=== PATIENT | female | born 1980 | race American Indian/Alaskan Native ===

== ENCOUNTER 2017-05-09 10:39 | Observation (INO) | payer MEDICAID ==
[2017-05-09 10:53] VITALS: BMI 25.2
[2017-05-09] MEDS ORDERED: Sodium Chloride 0.9% 500 ML IV STA (11:28)
[2017-05-09] MEDS ORDERED: HYDROmorphone 0.5 mg/0.5 ml ISec IVP STA ×2 (11:29→15:47)
--- NOTE | 2017-05-09 11:33 | ED PDOC ---
Arrival/HPI - General Chief Complaint: Abdominal Pain Time Seen by Provider: 05/09/17 11:27 Historian: Patient - History of Present Illness Narrative History of Present Illness (Text): 05/09/17 11:30 pt p/w + ~ 1 week onset of diffuse mid-lower abd pain, at most pain is 9/10, typically the pain is 5/10; pain wax and wanes; decr appetite; pt was seen and treated at [facility] [place] 6 days ago and admitted and discharged 4days ago; pt states she had CT done at that time as well but she says she was prescribed Pepcid and discharged home; pt states no fever/sweats, + constant chills (not new), no cp/ sob/palpitations, pt was treated with asthma exacerbation last week as well; pt states no urinary changes, + last BM was ~ 5-6 days ago; pt states no fall/ trauma/sick contact, no travel; pt also noted nausea/vomiting x 3-4 days with poor appetite; pt states her abd pain today was worse and didnt want to go to [facility] [place] and decided to come to [facility] for further eval; pt's without other complaints Pt received nearly all her dialysis today Pt has had Endoscopy ~ 1 year ago (no + results) PCP: Dr Santos ([facility] [place]) dialysis - //Sat Time/Duration: 1 week Symptom Onset: Gradual Symptom Course: Worsening (waxing and waning) Quality: Stabbing, Cramping Severity Level: 9, Severe Activities at Onset: Rest Context: Home Past Medical History - Provider Review Nursing Documentation Reviewed: Yes - Travel History Have you recently traveled outside [place] w/in the past 3 mons?: No - Past History Past History: No Previous - Infectious Disease Hx of Infectious Diseases: None - Tetanus Immunization Tetanus Immunization: Unknown - Reproductive Menopause: Yes - Cardiac Hx Cardiac Disorders: No - Pulmonary Hx Respiratory Disorders: Yes Hx Asthma: Yes - Neurological Hx Neurological Disorder: No - HEENT Hx HEENT Disorder: No - Renal Hx Renal Disorder: Yes Hx Dialysis: Yes () Date of Last Dialysis Treatment: 02/21/16 Hx Renal Failure: Yes - Endocrine/Metabolic Hx Endocrine Disorders: No - Hematological/Oncological Hx Blood Disorders: No - Integumentary Hx Dermatological Disorder: No - Musculoskeletal/Rheumatological Hx Musculoskeletal Disorders: No - Gastrointestinal Hx Gastrointestinal Disorders: No Hx Gastritis: Yes - Genitourinary/Gynecological Hx Genitourinary Disorders: Yes Other/Comment: ectopic - Psychiatric Hx Psychophysiologic Disorder: Yes Hx Depression: Yes Hx Substance Use: No - Surgical History Hx Section: Yes Hx Tubal Ligation: Yes Hx Vascular Access Device: Yes Other/Comment: ectopic - Anesthesia Hx Anesthesia: Yes Hx Anesthesia Reactions: No Hx Malignant Hyperthermia: No - Suicidal Assessment Feels Threatened In Home Enviroment: No Family/Social History - Physician Review Nursing Documentation Reviewed: Yes Family/Social History: No Known Family HX Smoking Status: Light Smoker < 10 Cigarettes Daily Hx Alcohol Use: No Hx Substance Use: No Route: Smoking/Inhalation (weed) Hx Substance Use Treatment: No Allergies/Home Meds Allergies/Adverse Reactions: Allergies peanut Allergy (Verified 02/22/16 12:05) ANAPHYLAXIS tramadol Allergy (Verified 02/22/16 12:05) ANAPHYLAXIS chocolate Allergy (Uncoded 02/22/16 12:05) SWELLING sweet pea Allergy (Uncoded 02/22/16 12:05) SWELLING Home Medications: Home Meds Medication Instructions Recorded Confirmed Albuterol HFA [Ventolin HFA 90 1 puff INH Q4H 05/09/17 05/09/17 mcg/actuation (8 g)] Albuterol Sulfate [Albuterol 2.5 mg INH Q6H 05/09/17 05/09/17 Sulfate] Beclomethasone Dipropionate [Qvar 80 mcg INH BID 05/09/17 05/09/17 80 mcg] Cinacalcet [Sensipar] 30 mg PO DAILY 05/09/17 05/09/17 Esomeprazole Magnesium [Nexium] 22.3 mg PO DAILY 05/09/17 05/09/17 Famotidine [Pepcid] 20 mg PO DAILY 05/09/17 05/09/17 Fluticasone/Salmeterol 1 inh PO PRN PRN 05/09/17 05/09/17 [Fluticasone-Salmeterol 113-14] Lanthanum [Fosrenol] 1,000 mg PO TID 05/09/17 05/09/17 Sucroferric Oxyhydroxide [Velphoro] 500 mg PO BID 05/09/17 05/09/17 Review of Systems - Review of Systems Constitutional: Normal Eyes: Normal ENT: Normal Respiratory: SOB, Cough, Wheezing Cardiovascular: Chest Pain Gastrointestinal: Abdominal Pain, Constipation, Nausea, Vomiting Genitourinary Female: Normal Musculoskeletal: Normal Skin: Normal Neurological: Normal Endocrine: Normal Hemo/Lymphatic: Normal Psychiatric: Normal Physical Exam Vital Signs Reviewed: Yes Vital Signs Temp Pulse Resp BP Pulse Ox 05/09/17 11:05 98.3 F 72 18 135/96 H 99 Temperature: Afebrile Blood Pressure: Hypertensive Pulse: Regular Respiratory Rate: Normal Appearance: Positive for: Well-Appearing, Non-Toxic, Uncomfortable, Other ( resting in bed, alert/awake, GCS = 15, oriented x 3, uncomfortable, + mild distress due to pain, coopeartive, follows command with ease) Pain Distress: Mild Mental Status: Positive for: Alert and Oriented X 3 - Systems Exam Head: Present: Atraumatic, Normocephalic Pupils: Present: PERRL, Other (wearing eye glasses, no nystagmus, no photophobia , sclera anicteric, visual field intact b/l) Extroacular Muscles: Present: EOMI Conjunctiva: Present: Normal Ears: Present: Normal Mouth: Present: Moist Mucous Membranes, Normal Teeth, Other (no drooling/stridor , no exudate/lesions, uvula/tongue are midline, intact dentitions) Pharnyx: Present: Normal Nose (External): Present: Atraumatic Nose (Internal): Present: Normal Inspection Neck: Present: Normal Range of Motion, Trachea Midline, Other (intact ROM, no midline tenderness, no step off). No: MIDLINE TENDERNESS Respiratory/Chest: Present: Clear to Auscultation, Good Air Exchange, Other ( CTA b/l, no w/r/r, no accessory muscle use noted, no tachypenia) Cardiovascular: Present: Regular Rate and Rhythm, Normal S1, S2 Abdomen: Present: Normal Bowel Sounds, Other (diffuse mid abd tenderness, soft/ nt; +BS, ND; no polk's sign, no mcburney's point tenderness) Back: Present: Normal Inspection. No: CVA Tenderness, Midline Tenderness Upper Extremity: Present: Normal Inspection, Normal ROM, NORMAL PULSES, Neurovascularly Intact, Capillary Refill < 2s Lower Extremity: Present: Normal Inspection, NORMAL PULSES, Normal ROM, Neurovascularly Intact, Capillary Refill < 2 s Neurological: Present: GCS=15, CN II-XII Intact, Speech Normal Skin: Present: Warm, Normal Color, Other (cap refill < 1sec, no ulcerations, no petechiae, no rashes) Psychiatric: Present: Alert, Oriented x 3 Medical Decision Making ED Course and Treatment: 05/09/17 11:31 Impression: abd pain i have consider all the differential diagnosis regarding pt's chief medical complaints/clinical findings, including but are not limited to: abd pain A/P: abd pain - labs - iv - ct - ua - observe - supportive care 05/09/17 13:56 pt felt some improvement with the medications provided in the ED pt states pain is now 5/10 pt vomited some of the CT oral contrast 05/09/17 15:25 pt now has another episode of abdominal pain pt does not feel well pt is made aware of her medical results and expressed concern for discharge home pt agrees with admission I spoke with hospitalists live ammunition inspector, made aware, will see patient, agrees with obs placement Re-evaluation Time: 13:30 Reassessment Condition: Improving,but remains with symptoms - Lab Interpretations Lab Results: 05/09/17 12:00 05/09/17 12:50 Lab Results 05/09/17 12:50: Sodium 142, Chloride 96 L, Potassium 3.5 L, Carbon Dioxide 34 H , Anion Gap 16, BUN 16, Creatinine 5.0 H, Est GFR ( Amer) 12, Est GFR ( Non-Af Amer) 10, Random Glucose 95, Calcium 10.0, Total Bilirubin 0.6, AST 70 H , ALT 82 H, Alkaline Phosphatase 162 H, Total Protein 7.7, Albumin 4.2, Globulin 3.5, Albumin/Globulin Ratio 1.2, Lipase 251 05/09/17 12:05: Urine Color Yellow, Urine Appearance Clear, Urine pH 8.5, Ur Specific [place] 1.015, Urine Protein 100 H, Urine Glucose (UA) 250 H, Urine Ketones Negative, Urine Blood Large H, Urine Nitrate Negative, Urine Bilirubin Negative, Urine Urobilinogen 0.2, Ur Leukocyte Esterase Negative, Urine RBC 20 - 25, Urine WBC 1 - 3, Ur Epithelial Cells Many, Amorphous Sediment Few, Urine Bacteria Mod 05/09/17 12:00: pO2 42, VBG pH 7.44 H, VBG pCO2 61.0 H, VBG HCO3 41.4 H, VBG Total CO2 43.3 H, VBG O2 Sat (Calc) 77.9 H, VBG Base Excess 14.3 H, VBG Potassium 4.0, Sodium 140.0, Chloride 100.0, Glucose 87, Lactate 1.3, FiO2 21.0 , Venous Blood Potassium 4.0 05/09/17 12:00: WBC 5.3, RBC 3.76, Hgb 10.4 L, Hct 32.0 L, MCV 85.1, MCH 27.7, MCHC 32.5, RDW 15.7 H, Plt Count 146, MPV 11.1 H, Gran % 64.2, Lymph % (Auto) 17.7 L, [place] % (Auto) 12.2 H, Eos % (Auto) 5.3 H, Baso % (Auto) 0.6, Gran # 3.37 , Lymph # (Auto) 0.9 L, [place] # (Auto) 0.6, Eos # (Auto) 0.3, Baso # (Auto) 0.03 I have reviewed the lab results: Yes Interpretation: Abnormal lab values (elevated LFTs; elevated Creat (chronic); + RBCs) - RAD Interpretation Narrative RAD Interpretations (Text): Report Date : 05/09/2017 14:49:57 PROCEDURE: CT Abdomen and Pelvis with contrast Dictator : Margot Spivey MD IMPRESSION: No acute abdominal or pelvic abnormality. Specifically, no CT evidence for acute appendicitis. Chronic renal parenchymal disease with renal atrophy. Radiology Orders: 05/09/17 11:28 ABD PELVIS PO & IV CONTRAST [CT] Stat Boiler Engineer: Radiologist - Medication Orders Current Medication Orders: Discontinued Medications Famotidine (Pepcid) 20 mg IVP STAT STA Stop: 05/09/17 11:29 Last Admin: 05/09/17 12:17 Dose: 20 mg IVP Administration Document 05/09/17 12:17 WENDY (Rec: 05/09/17 12:17 WENDY [id number]) Charges for Administration # of IVP Administrations 1 Gabapentin (Neurontin) 100 mg PO ONCE ONE PRN Reason: Protocol Stop: 05/09/17 15:28 Hydromorphone HCl (Dilaudid) 1 mg IVP STAT STA Stop: 05/09/17 11:30 Last Admin: 05/09/17 12:18 Dose: 1 mg MAR Pain Assessment Document 05/09/17 12:18 LA (Rec: 05/09/17 12:19 LA [id number]) Pain Reassessment Is this a pain reassessment? No Sleep Is patient sleeping during reassessment? No Presence of Pain Presence of Pain Yes Pain Scale Used Pain Scale Used Numeric Location Left, Right or Bilateral Bilateral Pain Location Body Site Abdomen Description Description Cramping Intensity of Pain at present 8 Acceptable Level of Pain 5 IVP Administration Document 05/09/17 12:18 LA (Rec: 05/09/17 12:19 LA [id number]) Charges for Administration # of IVP Administrations 1 Re-Assess: OLGA Pain Assessment Document 05/09/17 13:18 LA (Rec: 05/09/17 15:01 LA [id number]) Pain Reassessment Is this a pain reassessment? Yes Sleep Is patient sleeping during reassessment? No Presence of Pain Presence of Pain Yes Pain Scale Used Pain Scale Used Numeric Location Left, Right or Bilateral Right Upper or Lower Lower Pain Location Body Site Abdomen Description Description Intermittent Intensity of Pain at present 6 Pain Behavior Guarding Hydromorphone HCl (Dilaudid) 1 mg IVP STAT STA Stop: 05/09/17 15:20 Sodium Chloride (Sodium Chloride 0.9%) 500 mls @ 1,000 mls/hr IV .Q30M STA Stop: 05/09/17 11:57 Last Admin: 05/09/17 12:19 Dose: 1,000 mls/hr eMAR Start Stop Document 05/09/17 12:19 LA (Rec: 05/09/17 12:19 LA [id number]) Intravenous Solution Start Date 05/09/17 Start Time 12:19 Ondansetron HCl (Zofran Inj) 4 mg IVP STAT STA Stop: 05/09/17 11:29 Last Admin: 05/09/17 12:17 Dose: 4 mg IVP Administration Document 05/09/17 12:17 LA (Rec: 05/09/17 12:17 LA [id number]) Charges for Administration # of IVP Administrations 1 Disposition/Present on Arrival - Present on Arrival Any Indicators Present on Arrival: No History of DVT/PE: No History of Uncontrolled Diabetes: No Urinary Catheter: No History of Decub. Ulcer: No History Surgical Site Infection Following: None - Disposition Have Diagnosis and Disposition been Completed?: Yes Diagnosis: Intractable generalized abdominal pain, ESRD on dialysis, Dehydration Disposition: HOSPITALIZED Disposition Time: 15:30 Patient Plan: Admission, Observation Condition: STABLE Forms: [employer] (Macedonian)
[2017-05-09] MEDS ORDERED: Iohexol 240 (50 ml) ONE (11:40)
[2017-05-09 12:11] LABS: PH,URINE 8.5 (4.7-8.0); URINE APPEARANCE CLEAR (CLEAR); URINE BILIRUBIN NEGATIVE (NEGATIVE); URINE BLOOD LARGE (NEGATIVE); URINE COLOR YELLOW (YELLOW); URINE GLUCOSE (UA) 250 mg/dL (NEGATIVE); URINE LEUKOCYTE ESTERASE NEGATIVE Leu/uL (NEGATIVE); URINE PROTEIN 100 mg/dL (<30 mg/dL); URINE UROBILINOGEN 0.2 E.U./dL (<1 E.U./dL)
[2017-05-09 12:18] LABS: URINE AMORPHOUS SEDIMENT FEW; URINE BACTERIA MOD (NEG); URINE EPITHELIAL CELLS MANY /hpf (0-5); URINE RBC 20 - 25 /hpf (0-2)
[2017-05-09 12:31] LABS: VENOUS BLOOD GAS BASE EXCESS 14.3 mmol/L (0.0-2.0); VENOUS BLOOD GAS PO2 42 mm/Hg (30-55); VENOUS BLOOD PH 7.44 (7.32-7.43)
[2017-05-09 12:33] LABS: BASO # 0.03 K/mm3 (0.0-2.0); BASO % 0.6 % (0.0-3.0); EOS # 0.3 (0.0-0.7); EOS % 5.3 % (1.5-5.0); GRAN # 3.37 (1.4-6.5); GRAN % 64.2 % (50.0-68.0); HEMOGLOBIN 10.4 g/dL (12.0-16.0); LYMPH # 0.9 (1.2-3.4); LYMPH % 17.7 % (22.0-35.0); MEAN CELL VOLUME 85.1 fl (80.0-105.0); MEAN CORPUSCULAR HEMOGLOBIN 27.7 pg (25.0-35.0); MEAN CORPUSCULAR HGB CONC 32.5 g/dl (31.0-37.0); MEAN PLATELET VOLUME 11.1 fl (7.0-11.0); MONO # 0.6 (0.1-0.6); MONO % 12.2 % (1.0-6.0); RBC 3.76 10^6/uL (3.5-6.1); RED CELL DISTRIBUTION WIDTH 15.7 % (11.5-14.5); WHITE BLOOD COUNT 5.3 10^3/ul (4.5-11.0)
[2017-05-09 13:08] LABS: ALB/GLOB RATIO 1.2 (1.1-1.8); ALBUMIN 4.2 g/dL (3.0-4.8)
[2017-05-09] MEDS ORDERED: Iohexol 350 MG/100 ML VIAL ONE (13:17)
--- NOTE | 2017-05-09 14:51 | CT ---
PROCEDURE: CT Abdomen and Pelvis with contrast HISTORY: Diffuse lower abdominal pain, dialysis patient COMPARISON: Ultrasound abdomen from 02/22/[address] abdomen from 01/21/2015. TECHNIQUE: CT scan of the abdomen and pelvis was performed after administration of intravenous contrast. Oral contrast was administered. Coronal and sagittal reformatted images were obtained. Contrast dose: 100 mL Omnipaque 350 Radiation dose: Total exam DLP = 341.17 mGy-cm. This CT exam was performed using one or more of the following dose reduction techniques: Automated exposure control, adjustment of the mA and/or kV according to patient size, and/or use of iterative reconstruction technique. FINDINGS: LOWER THORAX: The lung bases are clear. LIVER: Normal in size with homogeneous enhancement. No gross lesion or ductal dilatation. GALLBLADDER AND BILE DUCTS: There are no calcified gallstones. PANCREAS: Normal in size with homogeneous enhancement e. No gross lesion or ductal dilatation. SPLEEN: Normal in size and appearance. ADRENALS: No discrete nodule. KIDNEYS AND URETERS: Again seen are atrophic kidneys. VASCULATURE: No aortic aneurysm. BOWEL: The small bowel loops are normal in caliber. There is moderate amount of stool scattered throughout the colon. No bowel dilatation or obstruction APPENDIX: Normal appendix. PERITONEUM: No free fluid. No free air. LYMPH NODES: No enlarged lymph nodes. BLADDER: Decompressed. REPRODUCTIVE: The uterus is normal in size. BONES: There is diffuse bone demineralization. No acute fracture.Within normal limits for the patient's age. OTHER FINDINGS: None. IMPRESSION: No acute abdominal or pelvic abnormality. Specifically, no CT evidence for acute appendicitis. Chronic renal parenchymal disease with renal atrophy.
[2017-05-09] MEDS ORDERED: HYDROmorphone 1 mg/ml ISec IVP STA (15:19)
[2017-05-09 16:39] VITALS: O2SAT 100
[2017-05-09] MEDS ORDERED: POLYETHYLENE GLYCOL 3350 17 GM/Dose PACKET PO STA (16:54)
[2017-05-09 17:35] LABS: BARBITURATES, UR NEGATIVE (NEGATIVE); BENZODIAZEPINES, UR NEGATIVE (NEGATIVE); OPIATES, UR POSITIVE (NEGATIVE); PHENCYCLIDINE, UR NEGATIVE (NEGATIVE)
--- NOTE | 2017-05-09 18:08 | CARD ---
APPROVED REPORT EKG Measurement Heart [id number] <Conclusion> Normal sinus rhythm Prolonged QT Abnormal ECG
[2017-05-09] MEDS ORDERED: Albuterol-Ipratrop 3 mg / 0.5 (3 ml) UD IH PRN (18:31)
--- NOTE | 2017-05-09 19:10 | CP.PCM.HP ---
<Eduardo Jones Sal - Last Filed: 05/09/17 19:27> History of Present Illness - History of Present Illness History of Present Illness: Medicine H/P note for Dr. 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 Patient's boyfriend/fiance is at bedside providing some history. Patient's boyfriend states that he recently had a "stomach bug," and her symptoms have mirrored his symptoms. Patient further states she has not passed a bowel movement since Saturday and that on Saturday when she did pass a bowel movement, it was "just ranjeet." Patient denies fevers or chills at home Patient was seen and admitted at [facility] [place] 6 days ago and discharged 4 days ago. At that time, she states she had a CT done as well but she says she was prescribed Pepcid and discharged home. Patient was admitted for similar symptoms under Dr. Crump and Dr. Jennifer Owusu four years ago here at [facility] [place]. At that time, Patient had an endoscopy done which showed no abnormalities. She states she also had one about a year ago which also showed no positive results. Past Surgical History: Dialysis catheter Past Medical History: FSGS Nephritis, HD T/R/Sa; Asthma; Ectopic ; Gastritis Allergies: Adhesive, Peanut, Tramadol, Chocolate, Sweet pea Social History: +Tobacco (but she quit this past Saturday) +Social alcohol; Denies illicits, but UDS pos for opiates Hospitalizations: Recently at [facility] [place] for same thing Family History: DM, HTN Medications: Reviewed, See mar PMD: Dr Santos ([facility] [place]) Review of Systems: 12 point ROS conducted and negative except per HPI Present on Admission - Present on Admission Any Indicators Present on Admission: No Past Patient History - Infectious Disease Hx of Infectious Diseases: None - Tetanus Immunizations Tetanus Immunization: Unknown - Past Social History Smoking Status: Light Smoker < 10 Cigarettes Daily - CARDIAC Hx Cardiac Disorders: No - PULMONARY Hx Respiratory Disorders: Yes Hx Asthma: Yes - NEUROLOGICAL Hx Neurological Disorder: No - HEENT Hx HEENT Problems: No - RENAL Hx Chronic Kidney Disease: Yes Hx Dialysis: Yes () Date of Last Dialysis Treatment: 02/21/16 Hx Renal Failure: Yes - ENDOCRINE/METABOLIC Hx Endocrine Disorders: No - HEMATOLOGICAL/ONCOLOGICAL Hx Blood Disorders: No - INTEGUMENTARY Hx Dermatological Problems: No - MUSCULOSKELETAL/RHEUMATOLOGICAL Hx Musculoskeletal Disorders: No - GASTROINTESTINAL Hx Gastrointestinal Disorders: No Hx Gastritis: Yes - GENITOURINARY/GYNECOLOGICAL Hx Genitourinary Disorders: Yes Other/Comment: ectopic - PSYCHIATRIC Hx Psychophysiologic Disorder: Yes Hx Depression: Yes Hx Substance Use: No - SURGICAL HISTORY Hx Section: Yes Hx Tubal Ligation: Yes Hx Vascular Access Device: Yes Other/Comment: ectopic - ANESTHESIA Hx Anesthesia: Yes Hx Anesthesia Reactions: No Hx Malignant Hyperthermia: No Meds Allergies/Adverse Reactions: Allergies Allergy/AdvReac Type Severity Reaction Status Date / Time adhesive tape Allergy Severe ITCHING Verified 05/09/17 16:21 peanut Allergy ANAPHYLAXIS Verified 02/22/16 12:05 tramadol Allergy ANAPHYLAXIS Verified 02/22/16 12:05 chocolate Allergy SWELLING Uncoded 02/22/16 12:05 sweet pea Allergy SWELLING Uncoded 02/22/16 12:05 Physical Exam - Constitutional Appears: Well, No Acute Distress - Head Exam Head Exam: ATRAUMATIC, NORMAL INSPECTION, NORMOCEPHALIC - Eye Exam Eye Exam: EOMI, Normal appearance, PERRL Pupil Exam: NORMAL ACCOMODATION, PERRL - ENT Exam ENT Exam: Mucous Membranes Moist, Normal Exam - Neck Exam Neck exam: Positive for: Normal Inspection - Respiratory Exam Respiratory Exam: Clear to Auscultation Bilateral, NORMAL BREATHING PATTERN - Cardiovascular Exam Cardiovascular Exam: REGULAR RHYTHM - GI/Abdominal Exam GI & Abdominal Exam: Normal Bowel Sounds, Soft. absent: Tenderness - Extremities Exam Extremities exam: Positive for: normal inspection - Back Exam Back exam: NORMAL INSPECTION - Neurological Exam Neurological exam: Alert, CN II-XII Intact, Normal Gait, Oriented x3, Reflexes Normal - Psychiatric Exam Psychiatric exam: Normal Affect, Normal Mood - Skin Skin Exam: Dry, Intact, Normal Color, Warm Results - Vital Signs Recent Vital Signs: Last Vital Signs Temp 98.3 F 05/09/17 11:05 Pulse 65 05/09/17 16:38 Resp 18 03/22/18 16:38 BP 144/96 H 05/09/17 16:38 Pulse Ox 100 05/09/17 16:38 - Labs Result Diagrams: 05/09/17 12:00 05/09/17 12:50 Labs: Laboratory Results - last 24 hr 05/09/17 05/09/17 05/09/17 16:37 17:03 18:12 POC Glucose (mg/dL) 96 Urine Opiates Screen Positive H Urine Methadone Screen Negative Ur Barbiturates Screen Negative Ur Phencyclidine Scrn Negative Ur Amphetamines Screen Negative U Benzodiazepines Scrn Negative U Oth Cocaine Metabols Negative U Cannabinoids Screen Positive H Alcohol, Quantitative < 10 Assessment & Plan - Assessment and Plan (Free Text) Assessment: Assessment and Plan: Patient is a 33 female with 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 Intractable Nausea Vomiting - No bouts of emesis since here - Hold zofran/reglan, patient has prolonged QT interval - Hold fluids, patient is a CKD patient - Hold Tylenol 2/2 elevated liver enzymes - If patient complains of pain, give one time doses of Motrin (patient has CKD on HD) - GI consulted: Dr. Jj Copeland Abdominal Pain - CT Abdomen and Pelvis shows stool in bowels - Miralax, Colace for constipation - GI consulted: Dr. Jj Copeland Constipation - Miralax, Colace as above Metabolic Alkalosis likely 2/2 Vomiting - Treat constipation, monitor electrolytes - Hold Zofran and Reglan for now 2/2 prolonged QT interval - Renal consult: Dr. Taveras Hypokalemia - Monitor and replete as needed CKD On Hemodialysis - Renal consult: Dr. Taveras - Renal diet Asthma - Duonebs PRN Cannabinoid Abuse - Counseled on cessation GI/DVT Prophylaxis - Protonix - SCD's Low manjinder score <Benito Crump - Last Filed: 05/10/17 12:33> Results - Vital Signs Recent Vital Signs: Last Vital Signs Temp 97.8 F 05/10/17 06:00 Pulse 70 05/10/17 06:00 Resp 20 05/10/17 06:00 BP 121/87 05/10/17 06:00 Pulse Ox 100 05/10/17 06:00 - Labs Result Diagrams: 05/10/17 07:15 05/10/17 07:15 Labs: Laboratory Results - last 24 hr 05/09/17 05/09/17 05/09/17 16:37 17:03 18:12 WBC RBC Hgb Hct MCV MCH MCHC RDW Plt Count MPV Gran % Lymph % (Auto) [place] % (Auto) Eos % (Auto) Baso % (Auto) Gran # Lymph # (Auto) [place] # (Auto) Eos # (Auto) Baso # (Auto) Sodium Potassium Chloride Carbon Dioxide Anion Gap BUN Creatinine Est GFR ( Amer) Est GFR (Non-Af Amer) POC Glucose (mg/dL) 96 Random Glucose Calcium Phosphorus Magnesium Total Bilirubin AST ALT Alkaline Phosphatase Total Protein Albumin Globulin Albumin/Globulin Ratio Urine Opiates Screen Positive H Urine Methadone Screen Negative Ur Barbiturates Screen Negative Ur Phencyclidine Scrn Negative Ur Amphetamines Screen Negative U Benzodiazepines Scrn Negative U Oth Cocaine Metabols Negative U Cannabinoids Screen Positive H Alcohol, Quantitative < 10 05/10/17 05/10/17 07:15 07:15 WBC 5.2 RBC 3.57 Hgb 9.6 L Hct 30.4 L MCV 85.2 MCH 26.9 MCHC 31.6 RDW 15.6 H Plt Count 135 MPV 11.2 H Gran % 59.9 Lymph % (Auto) 25.2 [place] % (Auto) 12.0 H Eos % (Auto) 2.7 Baso % (Auto) 0.2 Gran # 3.13 Lymph # (Auto) 1.3 [place] # (Auto) 0.6 Eos # (Auto) 0.1 Baso # (Auto) 0.01 Sodium 139 Potassium 4.0 Chloride 95 L Carbon Dioxide 31 Anion Gap 17 BUN 25 H Creatinine 7.5 H* D Est GFR ( Amer) 7 Est GFR (Non-Af Amer) 6 POC Glucose (mg/dL) Random Glucose 92 Calcium 10.1 Phosphorus 5.0 H Magnesium 2.4 H Total Bilirubin 1.1 AST 28 ALT 67 H Alkaline Phosphatase 156 H Total Protein 7.4 Albumin 4.0 Globulin 3.4 Albumin/Globulin Ratio 1.2 Urine Opiates Screen Urine Methadone Screen Ur Barbiturates Screen Ur Phencyclidine Scrn Ur Amphetamines Screen U Benzodiazepines Scrn U Oth Cocaine Metabols U Cannabinoids Screen Alcohol, Quantitative Attending/Attestation - Attestation I have personally seen and examined this patient.: Yes I have fully participated in the care of the patient.: Yes I have reviewed all pertinent clinical information: Yes Notes (Text): 05/10/17 12:28 attending note; Patient seen and examined with resident. 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 patient's boyfriend was also sick with gastroenteritis recently. patient had 2 episodes of vomiting in the ER. CT abdomen and pelvis Is negative for any acute findings except constipation. started on MiraLAX and Colace. Started on clear liquid diet. GI evaluation requested. Continue IV Protonix. End-stage renal disease on dialysis; patient got dialysis via right AV fistula. Status post contrast study. Follow up with nephrology. upon discharge the patient will follow-up with PMD . 05/10/17 12:30
[2017-05-09] MEDS: Albuterol-Ipratrop 3 mg / 0.5 (3 ml) UD IH SCH (19:53)
[2017-05-10] MEDS: Albuterol-Ipratrop 3 mg / 0.5 (3 ml) UD IH SCH ×3 (06:29→13:38)
[2017-05-10 07:52] LABS: BASO # 0.01 K/mm3 (0.0-2.0); BASO % 0.2 % (0.0-3.0); EOS # 0.1 (0.0-0.7); EOS % 2.7 % (1.5-5.0); GRAN # 3.13 (1.4-6.5); GRAN % 59.9 % (50.0-68.0); HEMOGLOBIN 9.6 g/dL (12.0-16.0); LYMPH # 1.3 (1.2-3.4); LYMPH % 25.2 % (22.0-35.0); MEAN CELL VOLUME 85.2 fl (80.0-105.0); MEAN CORPUSCULAR HEMOGLOBIN 26.9 pg (25.0-35.0); MEAN CORPUSCULAR HGB CONC 31.6 g/dl (31.0-37.0); MEAN PLATELET VOLUME 11.2 fl (7.0-11.0); MONO # 0.6 (0.1-0.6); RBC 3.57 10^6/uL (3.5-6.1); RED CELL DISTRIBUTION WIDTH 15.6 % (11.5-14.5); WHITE BLOOD COUNT 5.2 10^3/ul (4.5-11.0)
[2017-05-10 08:01] VITALS: BP 121/87; PULSE 70; RESP 20; TEMP 97.8
[2017-05-10 08:19] LABS: ALB/GLOB RATIO 1.2 (1.1-1.8); CALCIUM 10.1 mg/dL (8.4-10.5)
[2017-05-10] MEDS ORDERED: FOSRENOL 1000 MG PO SCH (10:00)
--- NOTE | 2017-05-10 10:20 | CP.PCM.CON ---
History of Present Illness - History of Present Illness History of Present Illness: Asked by hospitalist team for a GI consultation on this patient. 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 Prior to this she was in usual state of health. She had a recent admission to [facility] for similar episodes and was discharged from hospital after 3 days, given Azithromycin for unclear reason. She describes epigastric abdominal pain 6/10 that radiates to umbilicus, is intermittent and associated with multiple episodes of nausea, non-bloody emesis. She reports her fiance at home was recently treated for the "stomach bug." She otherwise denies fever/chills, weight loss, rectal bleeding, diarrhea, recent travel, or unusual food consumption. She claims to have had an EGD 1 year ago which was normal as per patient. Patient currently seen sitting in bed, smiling and appears quite comfortable. No vomiting overnight, was able to tolerate PO liquids today without difficulty. Social history: no ETOH use, +marijuana use Family history: unknown, patient adopted Review of Systems - Review of Systems Review of Systems: - All other comprehensive 12 point review of systems performed, negative - Cardiovascular Cardiovascular: absent: Acrocyanosis, Chest Pain, Chest Pain at Rest, Chest Pain with Activity, Claudication, Diaphoresis, Dyspnea, Dyspnea on Exertion, Edema, Irregular Heart Rhythm, Pain Radiating to Arm/Neck/Jaw, Leg Edema, Leg Ulcers, Lightheadedness, Orthopnea, Palpitations, Paroxysmal Nocturnal Dyspnea, Pedal Edema, Radiating Pain, Rapid Heart Rate, Slow Heart Rate, Syncope, Other - Respiratory Respiratory: absent: Cough, Dyspnea, Hemoptysis, Dyspnea on Exertion, Wheezing, Snoring, Stridor, Pain on Inspiration, Chest Congestion, Excessive Mucous Production, Change in Mucous Color, Pain with Coughing, Other - Gastrointestinal Gastrointestinal: Abdominal Pain, Nausea, Vomiting - Musculoskeletal Musculoskeletal: absent: Abnormal Gait, Arthralgias, Atrophy, Back Pain, Deformity, Joint Swelling, Limited Range of Motion, Loss of Height, Muscle Cramps, Muscle Weakness, Myalgias, Neck Pain, Numbness, Radiating Pain into Limb , Stiffness, Tingling, Other - Neurological Neurological: absent: Abnormal Gait, Abnormal Hearing, Abnormal Movements, Abnormal Speech, Behavioral Changes, Burning Sensations, Confusion, Convulsions , Disequilibrium, Dizziness, Numbness, Focal Weakness, Frequent Falls, Headaches , Lack of Coordination, Loss of Vision, Memory Loss, Paresthesias, Radicular Pain, Restless Legs, Sensory Deficit, Syncope, Tingling, Tremor, Vertigo, Weakness, Other Visual Disturbances, Other Past Patient History - Infectious Disease Hx of Infectious Diseases: None - Tetanus Immunizations Tetanus Immunization: Unknown - Past Social History Smoking Status: Former Smoker - CARDIAC Hx Cardiac Disorders: No Hx Angina: No Hx Cardia Arrhythmia: No Hx Circulatory Problems: No Hx Congestive Heart Failure: No Hx Heart Murmur: No Hx Heart Transplant: No Hx Hypercholesterolemia: No Hx Hypertension: No Hx Internal Defibrillator: No Hx Mitral Valve Prolapse: No Hx Pacemaker: No Hx Peripheral Edema: No Hx Peripheral Vascular Disease: No - PULMONARY Hx Respiratory Disorders: Yes Hx Asthma: Yes Hx Bronchitis: Yes Hx Chronic Obstructive Pulmonary Disease (COPD): No Hx Emphysema: No Hx Pneumonia: No Hx Respiratory Aspiration: No Hx Respiratory Tract Infection: No Hx Sleep Apnea: No Hx Tuberculosis: No - NEUROLOGICAL Hx Neurological Disorder: No Hx Alzheimer's Disease: No HX Cerebrovascular Accident: No Hx Dementia: No Hx Dizziness: Yes Hx Meningitis: No Hx Migraine: No Hx Parkinson's Disease: No Hx Seizures: No Hx Transient Ischemic Attacks (TIA): No - HEENT Hx HEENT Problems: No Hx Blind: No Hx Cataracts: No Hx Deafness: No Hx Difficulty Chewing: No Hx Epistaxis: No Hx Glaucoma: No Hx Macular Degeneration: No - RENAL Hx Chronic Kidney Disease: Yes Hx Dialysis: Yes () Hx Kidney Stones: No Hx Neurogenic Bladder: No Hx Pyelonephritis: No Hx Renal (Kidney) Cancer: No Hx Renal Failure: Yes - ENDOCRINE/METABOLIC Hx Endocrine Disorders: No Hx Adrenal Cancer: No Hx Diabetes Insipidus: No Hx Diabetes Mellitus Type 1: No Hx Diabetes Mellitus Type 2: No Hx Hyperthyroidism: No Hx Hypothyroidism: No Hx Systemic Lupus Erythematosus: No - HEMATOLOGICAL/ONCOLOGICAL Hx Blood Disorders: No Hx AIDS: No Hx Anemia: No Hx Cancer: No Hx Chemotherapy: No Hx Cirrhosis: No Hx Hemophilia: No Hx Hepatitis A: No Hx Hepatitis B: No Hx Hepatitis C: No Hx Human Immunodeficiency Virus (HIV): No Hx Metastesis: No Hx Shingles: No Hx Sickle Cell Disease: No Hx Unexplained Bleeding: No - INTEGUMENTARY Hx Dermatological Problems: No Hx Basil Cell: No Hx Eczema: No Hx Melanoma: No Hx Psoriasis: No Hx Squamous Cell: No - MUSCULOSKELETAL/RHEUMATOLOGICAL Hx Musculoskeletal Disorders: No Hx Arthritis: No Hx Back Pain: No Hx Degenerative Joint Disease: No Hx Falls: Yes Hx Fractures: No Hx Gout: No Hx Herniated Disk: No Hx Myasthenia Gravis: No Hx Osteoarthritis: No Hx Osteomyelitis: No Hx Osteoporosis: No Hx Rhabdomyolysis: No Hx Spinal Stenosis: No Hx Unsteady Gait: No - GASTROINTESTINAL Hx Gastrointestinal Disorders: No Hx Colostomy: No Hx Crohn's Disease: No Hx Diverticulitis: No Hx Gall Bladder Disease: No Hx Gastroesophageal Reflux: No Hx Ileostomy: No Hx Liver Failure: No Hx Pancreatitis: No HX Swallowing Problems: No Hx Ulcer: No - GENITOURINARY/GYNECOLOGICAL Hx Genitourinary Disorders: Yes Hx Hematuria: No Hx Incontinence: No Hx Sexually Transmitted Disorders: No Hx Urinary Tract Infection: No Other/Comment: ectopic - PSYCHIATRIC Hx Psychophysiologic Disorder: Yes Hx Anxiety: No Hx Bipolar Disorder: No Hx Depression: Yes Hx Emotional Abuse: No Hx Hallucinations: No Hx Panic Symptoms: No Hx Paranoia: No Hx Post Traumatic Stress Disorder: No Hx Psychosis: No Hx Physical Abuse: No Hx Schizophrenia: No Hx Sexual Abuse: No Hx Substance Use: Yes (marijuana) - SURGICAL HISTORY Hx Surgeries: Yes Hx Amputation: No Hx Appendectomy: No Hx Cardiac Catheterization: No Hx Cholecystectomy: No Hx Coronary Stent: No Hx Gastric Bypass Surgery: No Hx Hysterectomy: No Hx Joint Replacement: No Hx Kidney Transplant: No Hx Liver Transplant: No Hx Mastectomy: No Hx Musculoskeletal Surgery: No Hx Open Heart Surgery: No Hx Orthopedic Surgery: No Hx Splenectomy: No Hx Valve Replacement: No Other/Comment: ectopic , tubal ligation - ANESTHESIA Hx Anesthesia: Yes Hx Anesthesia Reactions: No Hx Malignant Hyperthermia: No Meds Allergies/Adverse Reactions: Allergies Allergy/AdvReac Type Severity Reaction Status Date / Time adhesive tape Allergy Severe ITCHING Verified 05/09/17 16:21 peanut Allergy ANAPHYLAXIS Verified 02/22/16 12:05 tramadol Allergy ANAPHYLAXIS Verified 02/22/16 12:05 chocolate Allergy SWELLING Uncoded 02/22/16 12:05 sweet pea Allergy SWELLING Uncoded 02/22/16 12:05 - Medications Medications: Current Medications Albuterol/Ipratropium (Duoneb 3 Mg/0.5 Mg (3 Ml) Ud) 3 ml IH [id number] [facility] Last Admin: 05/10/17 08:00 Dose: 3 ml Albuterol/Ipratropium (Duoneb 3 Mg/0.5 Mg (3 Ml) Ud) 3 ml IH Q2H PRN PRN Reason: Shortness of Breath Cinacalcet (Sensipar) 30 mg PO DAILY [facility] Last Admin: 05/10/17 09:27 Dose: 30 mg Docusate Sodium (Colace) 100 mg PO TID [facility] Last Admin: 05/10/17 09:27 Dose: 100 mg Home Med (Home Med) 1 unit PO PC [facility] Last Admin: 05/10/17 09:27 Dose: 1 unit Home Med (Home Med) 1 unit PO HS [facility] Ondansetron HCl (Zofran Inj) 4 mg IVP Q8H PRN PRN Reason: Nausea/Vomiting Pantoprazole Sodium (Protonix Inj) 40 mg IVP DAILY [facility] Last Admin: 05/10/17 09:27 Dose: 40 mg Physical Exam - Constitutional Appears: Non-toxic, No Acute Distress - Eye Exam Eye Exam: EOMI, Normal appearance - ENT Exam ENT Exam: Mucous Membranes Moist - Respiratory Exam Respiratory Exam: Clear to Auscultation Bilateral - Cardiovascular Exam Cardiovascular Exam: REGULAR RHYTHM, +S1, +S2 - GI/Abdominal Exam GI & Abdominal Exam: Normal Bowel Sounds, Soft, Tenderness Additional comments: mild epigastric tenderness to palpation, no rebound/guarding no palpable hepato/splenomegaly - Extremities Exam Extremities exam: Positive for: normal inspection - Neurological Exam Neurological exam: Alert, CN II-XII Intact, Oriented x3, Reflexes Normal - Psychiatric Exam Psychiatric exam: Normal Affect, Normal Mood - Skin Skin Exam: Dry, Intact, Normal Color, Warm Results - Vital Signs Recent Vital Signs: Last Vital Signs Temp 97.8 F 05/10/17 06:00 Pulse 70 05/10/17 06:00 Resp 20 05/10/17 06:00 BP 121/87 05/10/17 06:00 Pulse Ox 100 05/10/17 06:00 - Labs Result Diagrams: 05/10/17 07:15 05/10/17 07:15 Labs: Laboratory Results - last 24 hr 05/09/17 05/09/17 05/09/17 16:37 17:03 18:12 WBC RBC Hgb Hct MCV MCH MCHC RDW Plt Count MPV Gran % Lymph % (Auto) [place] % (Auto) Eos % (Auto) Baso % (Auto) Gran # Lymph # (Auto) [place] # (Auto) Eos # (Auto) Baso # (Auto) Sodium Potassium Chloride Carbon Dioxide Anion Gap BUN Creatinine Est GFR ( Amer) Est GFR (Non-Af Amer) POC Glucose (mg/dL) 96 Random Glucose Calcium Phosphorus Magnesium Total Bilirubin AST ALT Alkaline Phosphatase Total Protein Albumin Globulin Albumin/Globulin Ratio Urine Opiates Screen Positive H Urine Methadone Screen Negative Ur Barbiturates Screen Negative Ur Phencyclidine Scrn Negative Ur Amphetamines Screen Negative U Benzodiazepines Scrn Negative U Oth Cocaine Metabols Negative U Cannabinoids Screen Positive H Alcohol, Quantitative < 10 05/10/17 05/10/17 07:15 07:15 WBC 5.2 RBC 3.57 Hgb 9.6 L Hct 30.4 L MCV 85.2 MCH 26.9 MCHC 31.6 RDW 15.6 H Plt Count 135 MPV 11.2 H Gran % 59.9 Lymph % (Auto) 25.2 Boyle % (Auto) 12.0 H Eos % (Auto) 2.7 Baso % (Auto) 0.2 Gran # 3.13 Lymph # (Auto) 1.3 Boyle # (Auto) 0.6 Eos # (Auto) 0.1 Baso # (Auto) 0.01 Sodium 139 Potassium 4.0 Chloride 95 L Carbon Dioxide 31 Anion Gap 17 BUN 25 H Creatinine 7.5 H* D Est GFR ( Amer) 7 Est GFR (Non-Af Amer) 6 POC Glucose (mg/dL) Random Glucose 92 Calcium 10.1 Phosphorus 5.0 H Magnesium 2.4 H Total Bilirubin 1.1 AST 28 ALT 67 H Alkaline Phosphatase 156 H Total Protein 7.4 Albumin 4.0 Globulin 3.4 Albumin/Globulin Ratio 1.2 Urine Opiates Screen Urine Methadone Screen Ur Barbiturates Screen Ur Phencyclidine Scrn Ur Amphetamines Screen U Benzodiazepines Scrn U Oth Cocaine Metabols U Cannabinoids Screen Alcohol, Quantitative Assessment & Plan - Assessment and Plan (Free Text) Assessment: FSG on HD Asthma Abdominal pain, nausea, vomiting - likely resolving gastroenteritis based on clinical scenario CT imaging reviewed by me showing no gross pathology Plan: - Advance diet slowly as tolerated - Anti-emetic therapy PRN - Continue with supportive care - Continue with PPI therapy for time being - Following hospital discharge, patient has appointment with gastroenterology Dr. Villareal on 05/20. No further planned GI intervention, will sign off case, please reconsult as necessary, thank you.
--- NOTE | 2017-05-10 12:24 | CP.PCM.DIS ---
Provider - Provider Date of Admission: 05/09/17 15:28 Attending physician: Benito Crump MD Consults: Dr. Copeland: GI Time Spent in preparation of Discharge (in minutes): 45 Hospital Course - Lab Results Lab Results: Most Recent Lab Values WBC 5.2 10^3/ul (4.5-11.0) 05/10/17 07:15 RBC 3.57 10^6/uL (3.5-6.1) 05/10/17 07:15 Hgb 9.6 g/dL (12.0-16.0) L 05/10/17 07:15 Hct 30.4 % (36.0-48.0) L 05/10/17 07:15 MCV 85.2 fl (80.0-105.0) 05/10/17 07:15 MCH 26.9 pg (25.0-35.0) 05/10/17 07:15 MCHC 31.6 g/dl (31.0-37.0) 05/10/17 07:15 RDW 15.6 % (11.5-14.5) H 05/10/17 07:15 Plt Count 135 10^3/uL (120.0-450.0) 05/10/17 07:15 MPV 11.2 fl (7.0-11.0) H 05/10/17 07:15 Gran % 59.9 % (50.0-68.0) 05/10/17 07:15 Lymph % (Auto) 25.2 % (22.0-35.0) 05/10/17 07:15 [place] % (Auto) 12.0 % (1.0-6.0) H 05/10/17 07:15 Eos % (Auto) 2.7 % (1.5-5.0) 05/10/17 07:15 Baso % (Auto) 0.2 % (0.0-3.0) 05/10/17 07:15 Gran # 3.13 (1.4-6.5) 05/10/17 07:15 Lymph # (Auto) 1.3 (1.2-3.4) 05/10/17 07:15 [place] # (Auto) 0.6 (0.1-0.6) 05/10/17 07:15 Eos # (Auto) 0.1 (0.0-0.7) 05/10/17 07:15 Baso # (Auto) 0.01 K/mm3 (0.0-2.0) 05/10/17 07:15 pO2 42 mm/Hg (30-55) 05/09/17 12:00 VBG pH 7.44 (7.32-7.43) H 05/09/17 12:00 VBG pCO2 61.0 (40-60) H 05/09/17 12:00 VBG HCO3 41.4 mmol/l (21-28) H 05/09/17 12:00 VBG Total CO2 43.3 mmol.L (22-28) H 05/09/17 12:00 VBG O2 Sat (Calc) 77.9 % (40-65) H 05/09/17 12:00 VBG Base Excess 14.3 mmol/L (0.0-2.0) H 05/09/17 12:00 VBG Potassium 4.0 mmol/L (3.6-5.2) 05/09/17 12:00 Sodium 140.0 mmol/L (132-148) 05/09/17 12:00 Chloride 100.0 mmol/L (98-107) 05/09/17 12:00 Glucose 87 mg/dl (65-105) 05/09/17 12:00 Lactate 1.3 mmol/L (0.7-2.1) 05/09/17 12:00 FiO2 21.0 % 05/09/17 12:00 Sodium 139 mmol/L (132-148) 05/10/17 07:15 Potassium 4.0 mmol/L (3.6-5.0) 05/10/17 07:15 Chloride 95 mmol/L (98-107) L 05/10/17 07:15 Carbon Dioxide 31 mmol/L (21-33) 05/10/17 07:15 Anion Gap 17 (10-20) 05/10/17 07:15 BUN 25 mg/dL (7-21) H 05/10/17 07:15 Creatinine 7.5 mg/dl (0.7-1.2) H* D 05/10/17 07:15 Est GFR ( Amer) 7 05/10/17 07:15 Est GFR (Non-Af Amer) 6 05/10/17 07:15 POC Glucose (mg/dL) 96 mg/dL (65-110) 05/09/17 16:37 Random Glucose 92 mg/dL (70-110) 05/10/17 07:15 Calcium 10.1 mg/dL (8.4-10.5) 05/10/17 07:15 Phosphorus 5.0 mg/dL (2.5-4.5) H 05/10/17 07:15 Magnesium 2.4 mg/dL (1.7-2.2) H 05/10/17 07:15 Total Bilirubin 1.1 mg/dL (0.2-1.3) 05/10/17 07:15 AST 28 U/L (14-36) 05/10/17 07:15 ALT 67 U/L (7-56) H 05/10/17 07:15 Alkaline Phosphatase 156 U/L (38-126) H 05/10/17 07:15 Total Protein 7.4 g/dL (5.8-8.3) 05/10/17 07:15 Albumin 4.0 g/dL (3.0-4.8) 05/10/17 07:15 Globulin 3.4 gm/dL 05/10/17 07:15 Albumin/Globulin Ratio 1.2 (1.1-1.8) 05/10/17 07:15 Lipase 251 U/L (23-300) 05/09/17 12:50 Venous Blood Potassium 4.0 mmol/L (3.6-5.2) 05/09/17 12:00 Urine Color Yellow (YELLOW) 05/09/17 12:05 Urine Appearance Clear (CLEAR) 05/09/17 12:05 Urine pH 8.5 (4.7-8.0) 05/09/17 12:05 Ur Specific [place] 1.015 (1.005-1.035) 05/09/17 12:05 Urine Protein 100 mg/dL (<30 mg/dL) H 05/09/17 12:05 Urine Glucose (UA) 250 mg/dL (NEGATIVE) H 05/09/17 12:05 Urine Ketones Negative mg/dL (NEGATIVE) 05/09/17 12:05 Urine Blood Large (NEGATIVE) H 05/09/17 12:05 Urine Nitrate Negative (NEGATIVE) 05/09/17 12:05 Urine Bilirubin Negative (NEGATIVE) 05/09/17 12:05 Urine Urobilinogen 0.2 E.U./dL (<1 E.U./dL) 05/09/17 12:05 Ur Leukocyte Esterase Negative Manuel/uL (NEGATIVE) 05/09/17 12:05 Urine RBC 20 - 25 /hpf (0-2) 05/09/17 12:05 Urine WBC 1 - 3 /hpf (0-6) 05/09/17 12:05 Ur Epithelial Cells Many /hpf (0-5) 05/09/17 12:05 Amorphous Sediment Few 05/09/17 12:05 Urine Bacteria Mod (NEG) 05/09/17 12:05 Urine Opiates Screen Positive (NEGATIVE) H 05/09/17 17:03 Urine Methadone Screen Negative (NEGATIVE) 05/09/17 17:03 Ur Barbiturates Screen Negative (NEGATIVE) 05/09/17 17:03 Ur Phencyclidine Scrn Negative (NEGATIVE) 05/09/17 17:03 Ur Amphetamines Screen Negative (NEGATIVE) 05/09/17 17:03 U Benzodiazepines Scrn Negative (NEGATIVE) 05/09/17 17:03 U Oth Cocaine Metabols Negative (NEGATIVE) 05/09/17 17:03 U Cannabinoids Screen Positive (NEGATIVE) H 05/09/17 17:03 Alcohol, Quantitative < 10 mg/dL (0-10) 05/09/17 18:12 Discharge Exam - Head Exam Head Exam: ATRAUMATIC, NORMAL INSPECTION, NORMOCEPHALIC Discharge Plan - Follow Up Plan Condition: STABLE Disposition: HOME/ ROUTINE
[2017-05-10] MEDS ORDERED: Bisacodyl 5mg EC Tab PO ONE (12:25)
--- NOTE | 2017-05-10 14:11 | CP.PCM.CON ---
History of Present Illness - History of Present Illness History of Present Illness: renal consult note HPI: 36 year old female with history of FSGS on HD TTS, HTN, asthma who presents to hospital with complaint of abdominal pain, nausea, vomiting which began 5 days ago. She has been at [facility] a week ago for similar complaints and was dced. no missed hd sessions. ros: negative except for those noted above PMH: esrd/ htn. asthma exam vtials reviewed ao times 3 heent normal no jvd [id number] no resp distress abd soft skin normal psy cooperative A&P:esrd/htn/anemia/sec hyperpth/gastroenteritis hd tts continue per schedule lytes ok bp ok anemia: aranesp bolivar with hd continue binders, monitor phos levels Past Patient History - Infectious Disease Hx of Infectious Diseases: None - Tetanus Immunizations Tetanus Immunization: Unknown - Past Social History Smoking Status: Former Smoker - CARDIAC Hx Cardiac Disorders: No Hx Angina: No Hx Cardia Arrhythmia: No Hx Circulatory Problems: No Hx Congestive Heart Failure: No Hx Heart Murmur: No Hx Heart Transplant: No Hx Hypercholesterolemia: No Hx Hypertension: No Hx Internal Defibrillator: No Hx Mitral Valve Prolapse: No Hx Pacemaker: No Hx Peripheral Edema: No Hx Peripheral Vascular Disease: No - PULMONARY Hx Respiratory Disorders: Yes Hx Asthma: Yes Hx Bronchitis: Yes Hx Chronic Obstructive Pulmonary Disease (COPD): No Hx Emphysema: No Hx Pneumonia: No Hx Respiratory Aspiration: No Hx Respiratory Tract Infection: No Hx Sleep Apnea: No Hx Tuberculosis: No - NEUROLOGICAL Hx Neurological Disorder: No Hx Alzheimer's Disease: No HX Cerebrovascular Accident: No Hx Dementia: No Hx Dizziness: Yes Hx Meningitis: No Hx Migraine: No Hx Parkinson's Disease: No Hx Seizures: No Hx Transient Ischemic Attacks (TIA): No - HEENT Hx HEENT Problems: No Hx Blind: No Hx Cataracts: No Hx Deafness: No Hx Difficulty Chewing: No Hx Epistaxis: No Hx Glaucoma: No Hx Macular Degeneration: No - RENAL Hx Chronic Kidney Disease: Yes Hx Dialysis: Yes () Hx Kidney Stones: No Hx Neurogenic Bladder: No Hx Pyelonephritis: No Hx Renal (Kidney) Cancer: No Hx Renal Failure: Yes - ENDOCRINE/METABOLIC Hx Endocrine Disorders: No Hx Adrenal Cancer: No Hx Diabetes Insipidus: No Hx Diabetes Mellitus Type 1: No Hx Diabetes Mellitus Type 2: No Hx Hyperthyroidism: No Hx Hypothyroidism: No Hx Systemic Lupus Erythematosus: No - HEMATOLOGICAL/ONCOLOGICAL Hx Blood Disorders: No Hx AIDS: No Hx Anemia: No Hx Cancer: No Hx Chemotherapy: No Hx Cirrhosis: No Hx Hemophilia: No Hx Hepatitis A: No Hx Hepatitis B: No Hx Hepatitis C: No Hx Human Immunodeficiency Virus (HIV): No Hx Metastesis: No Hx Shingles: No Hx Sickle Cell Disease: No Hx Unexplained Bleeding: No - INTEGUMENTARY Hx Dermatological Problems: No Hx Basil Cell: No Hx Eczema: No Hx Melanoma: No Hx Psoriasis: No Hx Squamous Cell: No - MUSCULOSKELETAL/RHEUMATOLOGICAL Hx Musculoskeletal Disorders: No Hx Arthritis: No Hx Back Pain: No Hx Degenerative Joint Disease: No Hx Falls: Yes Hx Fractures: No Hx Gout: No Hx Herniated Disk: No Hx Myasthenia Gravis: No Hx Osteoarthritis: No Hx Osteomyelitis: No Hx Osteoporosis: No Hx Rhabdomyolysis: No Hx Spinal Stenosis: No Hx Unsteady Gait: No - GASTROINTESTINAL Hx Gastrointestinal Disorders: No Hx Colostomy: No Hx Crohn's Disease: No Hx Diverticulitis: No Hx Gall Bladder Disease: No Hx Gastroesophageal Reflux: No Hx Ileostomy: No Hx Liver Failure: No Hx Pancreatitis: No HX Swallowing Problems: No Hx Ulcer: No - GENITOURINARY/GYNECOLOGICAL Hx Genitourinary Disorders: Yes Hx Hematuria: No Hx Incontinence: No Hx Sexually Transmitted Disorders: No Hx Urinary Tract Infection: No Other/Comment: ectopic - PSYCHIATRIC Hx Psychophysiologic Disorder: Yes Hx Anxiety: No Hx Bipolar Disorder: No Hx Depression: Yes Hx Emotional Abuse: No Hx Hallucinations: No Hx Panic Symptoms: No Hx Paranoia: No Hx Post Traumatic Stress Disorder: No Hx Psychosis: No Hx Physical Abuse: No Hx Schizophrenia: No Hx Sexual Abuse: No Hx Substance Use: Yes (marijuana) - SURGICAL HISTORY Hx Surgeries: Yes Hx Amputation: No Hx Appendectomy: No Hx Cardiac Catheterization: No Hx Cholecystectomy: No Hx Coronary Stent: No Hx Gastric Bypass Surgery: No Hx Hysterectomy: No Hx Joint Replacement: No Hx Kidney Transplant: No Hx Liver Transplant: No Hx Mastectomy: No Hx Musculoskeletal Surgery: No Hx Open Heart Surgery: No Hx Orthopedic Surgery: No Hx Splenectomy: No Hx Valve Replacement: No Other/Comment: ectopic , tubal ligation - ANESTHESIA Hx Anesthesia: Yes Hx Anesthesia Reactions: No Hx Malignant Hyperthermia: No Meds Home Medications: Home Medication List Medication Instructions Recorded Confirmed Type Docusate [Colace] 100 mg PO TID #12 cap 05/10/17 Rx Polyethylene Glycol 3350 [Miralax] 17 gm PO BID #10 ml 05/10/17 Rx Allergies/Adverse Reactions: Allergies Allergy/AdvReac Type Severity Reaction Status Date / Time adhesive tape Allergy Severe ITCHING Verified 05/09/17 16:21 peanut Allergy ANAPHYLAXIS Verified 02/22/16 12:05 tramadol Allergy ANAPHYLAXIS Verified 02/22/16 12:05 chocolate Allergy SWELLING Uncoded 02/22/16 12:05 sweet pea Allergy SWELLING Uncoded 02/22/16 12:05 - Medications Medications: Current Medications Albuterol/Ipratropium (Duoneb 3 Mg/0.5 Mg (3 Ml) Ud) 3 ml IH [id number] [facility] Last Admin: 05/10/17 13:38 Dose: 3 ml Albuterol/Ipratropium (Duoneb 3 Mg/0.5 Mg (3 Ml) Ud) 3 ml IH Q2H PRN PRN Reason: Shortness of Breath Cinacalcet (Sensipar) 30 mg PO DAILY [facility] Last Admin: 05/10/17 09:27 Dose: 30 mg Darbepoetin Ian (Aranesp) 60 mcg IVP ONCE ONE Stop: 05/11/17 06:01 Docusate Sodium (Colace) 100 mg PO TID [facility] Last Admin: 05/10/17 09:27 Dose: 100 mg Home Med (Home Med) 1 unit PO PC [facility] Last Admin: 05/10/17 09:27 Dose: 1 unit Home Med (Home Med) 1 unit PO HS [facility] Ondansetron HCl (Zofran Inj) 4 mg IVP Q8H PRN PRN Reason: Nausea/Vomiting Pantoprazole Sodium (Protonix Ec Tab) 40 mg PO ACB [facility] Results - Vital Signs Recent Vital Signs: Last Vital Signs Temp 97.8 F 05/10/17 06:00 Pulse 70 05/10/17 06:00 Resp 20 05/10/17 06:00 BP 121/87 05/10/17 06:00 Pulse Ox 100 05/10/17 06:00 - Labs Result Diagrams: 05/10/17 07:15 05/10/17 07:15 Labs: Laboratory Results - last 24 hr 05/09/17 05/09/17 05/09/17 16:37 17:03 18:12 WBC RBC Hgb Hct MCV MCH MCHC RDW Plt Count MPV Gran % Lymph % (Auto) [place] % (Auto) Eos % (Auto) Baso % (Auto) Gran # Lymph # (Auto) [place] # (Auto) Eos # (Auto) Baso # (Auto) Sodium Potassium Chloride Carbon Dioxide Anion Gap BUN Creatinine Est GFR ( Amer) Est GFR (Non-Af Amer) POC Glucose (mg/dL) 96 Random Glucose Calcium Phosphorus Magnesium Total Bilirubin AST ALT Alkaline Phosphatase Total Protein Albumin Globulin Albumin/Globulin Ratio Urine Opiates Screen Positive H Urine Methadone Screen Negative Ur Barbiturates Screen Negative Ur Phencyclidine Scrn Negative Ur Amphetamines Screen Negative U Benzodiazepines Scrn Negative U Oth Cocaine Metabols Negative U Cannabinoids Screen Positive H Alcohol, Quantitative < 10 05/10/17 05/10/17 07:15 07:15 WBC 5.2 RBC 3.57 Hgb 9.6 L Hct 30.4 L MCV 85.2 MCH 26.9 MCHC 31.6 RDW 15.6 H Plt Count 135 MPV 11.2 H Gran % 59.9 Lymph % (Auto) 25.2 [place] % (Auto) 12.0 H Eos % (Auto) 2.7 Baso % (Auto) 0.2 Gran # 3.13 Lymph # (Auto) 1.3 [place] # (Auto) 0.6 Eos # (Auto) 0.1 Baso # (Auto) 0.01 Sodium 139 Potassium 4.0 Chloride 95 L Carbon Dioxide 31 Anion Gap 17 BUN 25 H Creatinine 7.5 H* D Est GFR ( Amer) 7 Est GFR (Non-Af Amer) 6 POC Glucose (mg/dL) Random Glucose 92 Calcium 10.1 Phosphorus 5.0 H Magnesium 2.4 H Total Bilirubin 1.1 AST 28 ALT 67 H Alkaline Phosphatase 156 H Total Protein 7.4 Albumin 4.0 Globulin 3.4 Albumin/Globulin Ratio 1.2 Urine Opiates Screen Urine Methadone Screen Ur Barbiturates Screen Ur Phencyclidine Scrn Ur Amphetamines Screen U Benzodiazepines Scrn U Oth Cocaine Metabols U Cannabinoids Screen Alcohol, Quantitative
[2017-05-10] MEDS ORDERED: LEVOCETIRIZINE 5 MG PO SCH (22:00)
[2017-05-11] MEDS ORDERED: Darbepoetin Alfa 60 mcg/ml Inj IVP ONE (06:00)
[2017-05-11] MEDS ORDERED: Pantoprazole 40 mg EC Tab PO SCH (07:30)
== END 2017-05-10 14:58 | disposition home or self-care (01) ==
LOC: ED 10:39 → ERH 15:28 → 3RSO 17:52
PROVIDERS: ADMIT Internal Medicine; ATTEND Internal Medicine
DX: K52.9 Noninfective gastroenteritis and colitis, unspecified (principal); K59.00 Constipation, unspecified; I12.0 Hypertensive chronic kidney disease with stage 5 chronic kidney disease or end stage renal disease; N18.6 End stage renal disease; J45.909 Unspecified asthma, uncomplicated; E86.0 Dehydration; E87.3 Alkalosis; E87.6 Hypokalemia; N26.9 Renal sclerosis, unspecified; F17.210 Nicotine dependence, cigarettes, uncomplicated; Z98.51 Tubal ligation status; Z99.2 Dependence on renal dialysis; Z82.49 Family history of ischemic heart disease and other diseases of the circulatory system; Z83.3 Family history of diabetes mellitus; Z88.6 Allergy status to analgesic agent; Z91.010 Allergy to peanuts; Z91.018 Allergy to other foods; R40.2412 Glasgow coma scale score 13-15, at arrival to emergency department; F12.90 Cannabis use, unspecified, uncomplicated
CPT/HCPCS: 36415; 74177; 80053; 80320; 80324; 80345; 80346; 80349; 80353; 80358; 80361; 81001; 82803; 82948; 83690; 83735; 83992; 84100; 85025; 93005; 94640; 96374; 96375; 96376; 99285; C9113; G0378; J1170; J2405; J7040; Q9966; Q9967